=== PATIENT | female | born 1985 | race Caucasian/White ===

== ENCOUNTER 2016-10-16 17:29 | Emergency (ER) | payer SELFPAY ==
[~2016-10-16] VITALS: Ht 157.5 cm; Wt 54.5 kg
[~2016-10-16 17:29] MED LIST: ASCO250T7 PO; FERR-83 PO; LORA-302 PO
[2016-10-16 17:33] VITALS: BP 142/87; PULSE 86; RESP 18; O2SAT 100
--- NOTE | 2016-10-16 18:24 | ED.REPORT ---
HPI-Extremity Problem Upper Date of Service Oct 16, 2016 ED Provider: Dr. Vivas Pt is a generally healthy 31 y/o female presenting to the ED due to right finger numbness onset today. The patient had a right hand cast placed on August 30 due to metacarpal fractures caused by punching a wall. She then went to [facility] and she cut the cast off herself. When she came back ortho put the cast back on and today it is causing numbness and tingling about the right fingers. She has no other complaints. Nursing Notes Stated Complaint: REMOVE CAST/SENT BY VERONA CRUZ Chief Complaint: General Complaint Nursing Notes Reviewed: Yes Allergies: Coded Allergies: hydrocodone (Verified Allergy, Severe, 10/16/16) Scheduled Ferrous Sulfate (Ferrous Sulfate) 325 Mg Tablet 325 MG PO TID Scheduled PRN Ascorbic Acid (Vitamin C) 250 Mg Tab.chew 250 MG PO TID PRN PRN WITH iron Lorazepam (Ativan) 0.5 Mg Tablet 0.5 MG PO BID PRN PRN For Anxiety General Time Seen by MD: 18:22 Chief Complaint Other (numbness) Hx Obtained From: Patient Arrived By: Walk-in Onset Occurred: 1 day ago Symptom Duration: Since onset Severity: Current: No pain currently Severity: Maximum: No pain Recent Healthcare: Recent doctor visit Similar Sx Previous: No Past Medical History Past Medical History Recent [facility] Metacarpal fractures Past Surgical History d and c Smoking History Current Every Day Smoker Social History Alcohol Use: "Social" Drug Use: Denies drug use Occupation single, work at [employer] Ambulatory Status Independent Review of Systems Constitutional: Denies: Chills, Fever Musculoskeletal: Reports: Extremity pain, Denies: Extremity swelling Neurologic: Reports: Numbness, Denies: Weakness Complete sys rev & neg: except as marked. Physical Exam Initial Vital Signs Vital Signs (First) Date Time Temp Pulse Resp B/P Pulse Ox O2 Delivery O2 Flow Rate FiO2 10/16/16 17:33 36.7 86 18 142/87 100 Room Air Initial VS: Reviewed, Vital signs normal Head / Eyes: Atraumatic, Normocephalic, PERRL ENT: Mucous membranes moist, Conjunctiva normal, No scleral icterus Neck: Supple, Full range of motion Respiratory: Breath sounds normal, Clear to auscultation, No respiratory distress Cardiovascular: Regular rate & rhythm, Heart sounds normal, Intact distal pulses Abdomen / GI: Soft, No distention Lower Extremities: Vascular intact, Neuro intact, No swelling, No tenderness Skin: Warm, Dry, No cyanosis Neurologic: Alert, Oriented, Nonfocal Psychiatric: Mood/affect normal, Behavior normal, Normal thought content General/Constitutional: Awake, Alert, No acute distress, Well appearing, Well developed, Well hydrated, Well nourished, Cooperative, Not toxic appearing Upper Extremity / MS: Atraumatic, Inspection NL, Full range of motion, No swelling, Non-tender, No snuffbox tenderness, No erythema, No deformity, Neurologic intact, Vascular intact, No ligamentous injury, Tendon function NL, No compartment syndrome, No circumferential injury, No clubbing/cyanosis, No edema Wrist / Hand: Atraumatic, Inspection NL, Full range of motion, No swelling, No erythema, Non-tender, No snuffbox tenderness, No deformity, Neurologic intact, Vascular intact, No ligamentous injury, Tendon function NL, No compartment syndrome, No circumferential injury, No clubbing/cyanosis, No edema Normal exam Re-Eval/Medical Decision Med Decision/Clinical Course Pt is a generally healthy 31 y/o female presenting to the ED due to right finger numbness onset today. The patient had a right hand cast placed on August 30 due to metacarpal fractures caused by punching a wall. She then went to [facility] and she cut the cast off herself. When she came back ortho put the cast back on and today it is causing numbness and tingling about the right fingers. She has no other complaints. Here in the emergency department the patient is afebrile stable vital signs and examination as above. The cast been removed prior to my assessment of the patient. She was noted to have good sensation and capillary refill to her fingertips. No evidence of ischemia. No evidence of neurovascular compromise. Forearm compartments are soft. Discussed with her orthopedic surgeon who recommended that she be placed in an ulnar gutter splint. Splint was applied and patient's neurovascular status was determined to be good thereafter. She will follow-up with orthopedic surgery in the coming week.Prior to discharge follow-up and return precautions were reviewed in detail with the patient who verbalized understanding and agreement with the plan. The patient was discharged in stable condition. Re-Evaluation/Progress : Time of Eval: 19:00 Post-Splint Evaluation: Cap refill < 2 seconds, Distal sensation intact, Distal motor func intact, No signs compartment synd Re-Evaluation/Progress Note: Pt rechecked. Informed pt of plan for treatment. Pt understands and agrees with plan for treatment. F/U instructions and RTER warnings given. All questions addressed. Consultation : Referral / Consult Name: Lowell Cuenca DO Consulted With: Orthopedic Call Returned at: 18:28 Stencil Machine Operator: Agrees with eval, Agrees with plan Note: Recommends ulnar gutter splint. Counseled Regarding: Diagnosis, Need for follow-up, When/why to return to ED Discharge & Departure Impression: Primary Impression: Cast discomfort Additional Impressions: Cast removal Tingling of right upper extremity Metacarpal bone fracture Encounter type: sequela Metacarpal bone: unspecified metacarpal Fracture type: closed Metacarpal location: unspecified portion of metacarpal Fracture morphology: unspecified fracture morphology Qualified Code: S62.309S - Unspecified fracture of unspecified metacarpal bone, sequela Disposition: Home Discharge Condition All VS Reviewed: Yes Condition: Stable Patient Instructions: Splint Care (ED) Additional Instructions: Keep the splint applied until you are seen by Dr. Lund. Take Ibuprofen 600 mg every 6 hours as needed for discomfort. Return to the emergency department for any numbness or weakness of your fingers or for other concerning symptoms. Referrals: Rigo Lund MD Attestation Portions of this note were transcribed by Dustin Benites. I, Dr. Vivas personally performed the history, physical exam and medical decision-making; I reviewed and confirmed the accuracy of the information in the transcribed note. Signed by Aurora Michele, 10/16/16 - [id number] copies to: Rigo Lund MD, Beck O MD Oct 16, 2016 18:24 DUSTIN BENITES Oct 16, 2016 18:30
[2016-10-16 19:13] VITALS: BP 108/73; PULSE 65; RESP 16; O2SAT 97
== END 2016-10-16 19:14 | disposition home or self-care (01) ==
LOC: SED 17:29
DX: S62.30 Unspecified fracture of other metacarpal bone (principal); R20.2 Paresthesia of skin; W22.09XS Striking against other stationary object, sequela; Y93.89 Activity, other specified; Y99.8 Other external cause status; Y92.9 Unspecified place or not applicable; F17.200 Nicotine dependence, unspecified, uncomplicated; Z88.5 Allergy status to narcotic agent